=== PATIENT | female | born 1995 | race Caucasian/White ===

== ENCOUNTER → 2021-06-03 15:44 | Outpatient (BNVA) | payer BC, SELFPAY | PROVIDERS: PCP Internal Medicine; Visit Provider Nurse Practitioner Family | DX: Z13.89 Encounter for screening for other disorder (principal) ==

== ENCOUNTER → 2022-03-23 14:21 | Outpatient (BNVA) | payer OTHER, SELFPAY | PROVIDERS: PCP Internal Medicine; Visit Provider Nurse Practitioner Family | DX: Z13.89 Encounter for screening for other disorder (principal) ==

== ENCOUNTER 2022-09-22 14:25 | Outpatient (AMB) | payer OTHER, SELFPAY ==
--- NOTE | 2022-09-22 14:27 | A.OFFVIS_ITS ---
Intake Vital Signs 09/22/22 14:29 Weight 152 lb 8 oz BP 118/66 Blood Pressure Location Rt brachial Position Sitting Pulse 73 Pulse Source Pulse Oximeter Pulse Oximetry (%) 100 Oxygen Delivery Method Room Air Intake Visit Reasons: 6M follow up - Confirmed Intake Note: Pt presents in fup for headaches . Pt states shes doing well but she concerned over when she has any alcohol she reacts quickly like a hangover c Bms and nausea and also lots of shaking and weakness . This month c headaches shes has had 2-3 only but she thinks its caused by her mouth guard breaking . Allergies No Known Allergies Allergy (Verified 09/22/22 14:34) Medication List - Last Reconciled 09/22/22 by Jessica Lobato, GLORIA baclofen 10 mg PO BEDTIME PRN 90 days galcanezumab-gnlm (Emgality Pen) 120 mg subcut once a month; 30 days magnesium oxide 500 mg PO DAILY methylphenidate HCl ER 72 mg PO QAM norethindrone (contraceptive) 0.35 mg PO DAILY propranolol 40 mg PO BID 30 days riboflavin (vitamin B2) 50 mg PO DAILY ubrogepant (Ubrelvy) 50 - 100 mg orally at onset of migraine, may repeat in 2 hours (max 200mg/day); PRN; 30 days HPI HPI Comments History of Present Illness Details 26-yr-old female presents for f/u visit. Pt denies any significant interval medical changes. She was having 1 migraine per month that can last 1-2 days, however frequency has increased to 2-3 per month since her mouth guard broke. She is awaiting a replacement mouth guard. The migraines still respond quickly to Ubrelvy, which is tolerated well. She is questioning if any of her medication may be causing her to not tolerate alcohol consumption. She notes even after drinking 1/2 a can of a gluten free alcoholic beverages she wakes up in the middle of the night with shakiness, nausea, weakness, racing heart. She has tried different types of alcohols and drinks, but she has the same reaction. [facility]LY [facility] Surgical History No pertinent past surgical history Social History Alcohol intake: current Alcohol intake frequency: holidays/special occasions only Patient Tobacco Use Status: Never used Tobacco Review of Systems Const All systems reviewed & are unremarkable except as noted in HPI and below Physical Exam Vital Signs: Last Vital Signs Pulse 73 09/22/22 14:29 BP 118/66 09/22/22 14:29 Pulse Ox 100 09/22/22 14:29 Oxygen Delivery Method Room Air 09/22/22 14:29 Const General: cooperative and no acute distress Orientation/consciousness: patient oriented x3 HEENT Head: Yes normocephalic Resp Effort & Inspection: normal respiratory effort and able to speak in complete sentences Neuro General: patient oriented x3, gait normal and CN's II-XI intact bilaterally Cognition (Neuro): normal cognition Motor exam (neuro): 5/5 motor strength present throughout Psych Appearance: grossly normal Mental Status: mental status grossly normal Speech and movement: Normal speech and movement present Affect: normal affect Attitude: cooperative Thought process: Normal thought process present Thought content: Normal thought content present Insight: Good insight present (Psych) Judgement: Good judgement present (Psych) Assessment & Plan Assessment & Plan (1) Migraine with aura: Comment: basilar aura- stuttering Code(s): G43.109 - Migraine with aura, not intractable, without status migrainosus (2) Adult onset fluency disorder: Code(s): F98.5 - Adult onset fluency disorder (3) 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 Advised pt to hold Propranol on nights in which she consumes alcohol, if this is not effective, try holding propranolol the the morning and night of consuming alcohol. For migraine prevention tx: Continue Emgality 120 mg sc q month, as pt has been having good clinical effect. Continue Propranolol, Magnesium, Riboflavin. Previous preventive tx: Cyproheptadine-ineffective. Aucte migraine tx: Continue Ubrelvy, may adjunct w/ NSAID. Previous acute migraine tx: Nurtec was not previously fully effective. Migraine tx contraindications: Triptans d/t migraine w/ basilar aura. Monitor stuttering. Monitor cold hand symptoms- ? familial Raynoud's, ? exacerbated by CGRP MAB/gepant use. For bruxism: Baclofen 5-10mg qhs prn Resume mouth guard qhs when able Future considerations: PT for TMJ, Botox, orthodontics. f/u in 6 months or sooner prn. Medications: Refilled ubrogepant (Ubrelvy) (0.5 - 1 x 100 mg) 50 - 100 mg orally at onset of migraine, may repeat in 2 hours (max 200mg/day); PRN; 30 days 8 tabs 6RF migraine headache Coding Level of Care Code Est Pt Level 4 (59301) Diagnoses Migraine with aura G43.109 Adult onset fluency disorder F98.5 Bruxism F45.8
[2022-09-22 14:29] VITALS: BP 118/66; PULSE 73; O2SAT 100
== END 2022-09-22 15:24 | disposition home or self-care (01) ==
PROVIDERS: Visit Provider Nurse Practitioner Family
DX: G43.109 Migraine with aura, not intractable, without status migrainosus (principal); F98.5 Adult onset fluency disorder; F45.8 Other somatoform disorders
CPT/HCPCS: 99214

== ENCOUNTER → 2022-09-22 14:25 | Outpatient (BNVA) | payer OTHER, SELFPAY | PROVIDERS: Visit Provider Nurse Practitioner Family ==

== ENCOUNTER 2023-03-28 14:20 | Outpatient (AMB) | payer BC, SELFPAY ==
--- NOTE | 2023-03-28 14:28 | A.OFFVIS_ITS ---
Intake Vital Signs 03/28/23 14:29 Height 5 ft 8 in Weight 166 lb BMI 25.2 Intake Visit Reasons: 6M follow up-Conf Intake Note: Patient presents for 6 month follow up. last time I saw her I was telling her about feeling nauseous after drinking. Allergies No Known Allergies Allergy (Verified 03/28/23 14:30) Medication List - Last Reconciled 03/28/23 by GLORIA Sanchez baclofen 10 mg PO BEDTIME PRN 90 days galcanezumab-gnlm (Emgality Pen) 120 mg subcut once a month; 30 days magnesium oxide 500 mg PO DAILY methylphenidate HCl ER 72 mg PO QAM norethindrone (contraceptive) 0.35 mg PO DAILY propranolol 40 mg PO BID 30 days riboflavin (vitamin B2) 50 mg PO DAILY ubrogepant (Ubrelvy) 50 - 100 mg orally at onset of migraine, may repeat in 2 hours (max 200mg/day); PRN; 30 days HPI HPI Comments History of Present Illness Details 27-yr-old female presents for f/u visit. Pt denies any significant interval medical changes. Pt notes that her Concerta was decreased from 72mg to 27mg qd d/t thought it was causing increased irritability. On the lower dose, she is not irritable, but has had some increased difficulties focusing. Her migraines are well-controlled. She has had 2 migraine sin the last month, one lasted 1 day and the other 2 days- did not have Ubrelvy available to her. Ubrelvy is still effective. She is compliant w/ propranolol, which she did realize was triggering the excessive N/V after minimal alcohol intake. She has not been able to figure how to hold the Propranolol prior to social alco hol use. ON LICENSE OF [facility] Surgical History No pertinent past surgical history Social History Alcohol intake: current Alcohol intake frequency: holidays/special occasions only Patient Tobacco Use Status: Never used Tobacco Physical Exam Vital Signs: BMI result Body Mass Index 25.2 Const General: cooperative and no acute distress Orientation/consciousness: patient oriented x3 Resp Effort & Inspection: normal respiratory effort and able to speak in complete sentences Neuro General: patient oriented x3 Cranial nerves: Yes CN's II-XII intact bilaterally Cognition (Neuro): normal cognition Psych Appearance: grossly normal Mental Status: mental status grossly normal Speech and movement: Normal speech and movement present Affect: normal affect Attitude: cooperative Assessment & Plan Assessment & Plan (1) Migraine with aura: Comment: basilar aura- stuttering Code(s): G43.109 - Migraine with aura, not intractable, without status migrainosus (2) Adult onset fluency disorder: Code(s): F98.5 - Adult onset fluency disorder (3) Bruxism: Code(s): F45.8 - Other somatoform disorders Plan For migraine prevention tx: Wean off propranolol- as this causes severe N/V reaction to any alcohol intake. Monitor headache attack burden. Continue Emgality 120 mg sc q month, as pt has been having good clinical effect. Continue Magnesium, Riboflavin. Previous preventive tx: Cyproheptadine-ineffective. Aucte migraine tx: Continue Ubrelvy, may adjunct w/ NSAID. Previous acute migraine tx: Nurtec was not previously fully effective. Migraine tx contraindications: Triptans d/t migraine w/ basilar aura. Monitor stuttering. Monitor cold hand symptoms- ? familial Raynoud's, ? exacerbated by CGRP MAB/gepant use. For bruxism: Baclofen 5-10mg qhs prn Mouth guard qhs when able Future considerations: PT for TMJ, Botox, orthodontics. f/u in 6 months or sooner prn. Medications: New propranolol 3 tabs bid x's 1 wk, then 2 tabs bid x's 1 wk, then 1 tab bid x's 1 wk, then 1 tab qd x's 1 wk, then stop orally. 28 days 91 tabs 0RF Refilled ubrogepant (Ubrelvy) (0.5 - 1 x 100 mg) 50 - 100 mg orally at onset of migraine, may repeat in 2 hours (max 200mg/day); PRN; 30 days 16 tabs 6RF migraine headache Discontinued propranolol Discontinued Reason: Doctor's Order 40 mg PO BID 30 days 180 tabs 1RF Coding Level of Care Code Est Pt Level 4 (40985) Diagnoses Migraine with aura G43.109 Adult onset fluency disorder F98.5 Bruxism F45.8
[2023-03-28 14:29] VITALS: BMI 25.2
== END 2023-03-28 15:10 | disposition home or self-care (01) ==
PROVIDERS: PCP Internal Medicine; Visit Provider Nurse Practitioner Family
DX: G43.109 Migraine with aura, not intractable, without status migrainosus (principal); F98.5 Adult onset fluency disorder; F45.8 Other somatoform disorders
CPT/HCPCS: 99214

== ENCOUNTER → 2023-03-28 14:20 | Outpatient (BNVA) | payer BC, SELFPAY | PROVIDERS: PCP Internal Medicine; Visit Provider Nurse Practitioner Family ==

== ENCOUNTER 2023-09-29 13:53 | Outpatient (AMB) | payer BC, SELFPAY ==
--- NOTE | 2023-09-29 13:57 | A.OFFVIS_ITS ---
Vital Signs 09/29/23 13:58 Height 5 ft 8 in Weight 162 lb BMI 24.6 Intake Visit Reasons: 6 month F/U-Conf Intake Note: Patient presents for 6 month follow up Allergies No Known Allergies Allergy (Verified 09/29/23 14:01) Medication List - Last Reconciled 09/29/23 by GLORIA Sanchez baclofen 10 mg PO BEDTIME PRN 90 days galcanezumab-gnlm (Emgality Pen) 120 mg subcut once a month; 30 days magnesium oxide 500 mg PO DAILY methylphenidate HCl ER 72 mg PO QAM norethindrone (contraceptive) 0.35 mg PO DAILY propranolol 3 tabs bid x's 1 wk, then 2 tabs bid x's 1 wk, then 1 tab bid x's 1 wk, then 1 tab qd x's 1 wk, then stop orally. 28 days riboflavin (vitamin B2) 50 mg PO DAILY ubrogepant (Ubrelvy) 50 mg PO ONCE PRN 30 days HPI Comments Details: 27-yr-old female presents for f/u visit. Pt denies any significant interval medical changes. Her migraines are stable, however nopt able to treta them as well as she has not had Ubrelvy recently as pharmacy states not approved by insurance. She has had 4 migraine attacks in the last month. Ubrelvy 100mg had been effective before running out. Continues on Emgality, which she is tolerating well. She has stopped Propranolol- no longer having issues taking social alcohol. FOR[facility]LY [facility] Surgical History No pertinent past surgical history Social History Alcohol intake: current Alcohol intake frequency: holidays/special occasions only Patient Tobacco Use Status: Never used Tobacco Physical Exam Vital Signs: BMI result Body Mass Index 24.6 Const General: cooperative and no acute distress Orientation/consciousness: patient oriented x3 Resp Effort & Inspection: normal respiratory effort and able to speak in complete sentences Neuro General: patient oriented x3 Cranial nerves: Yes CN's II-XII intact bilaterally Cognition (Neuro): normal cognition Psych Appearance: grossly normal Mental Status: mental status grossly normal Speech and movement: Normal speech and movement present Affect: normal affect Attitude: cooperative Assessment & Plan Assessment & Plan (1) Migraine with aura: Comment: basilar aura- stuttering Code(s): G43.109 - Migraine with aura, not intractable, without status migrainosus Category: Medical (2) Adult onset fluency disorder: Code(s): F98.5 - Adult onset fluency disorder Category: Medical (3) TMJ dysfunction: Code(s): M26.609 - Unspecified temporomandibular joint disorder, unspecified side Category: Medical Plan For migraine prevention tx: Continue Emgality 120 mg sc q month, as pt has been having good clinical effect. Continue Magnesium, Riboflavin. Previous preventive tx: Cyproheptadine-ineffective. propranolol- as this causes severe N/V reaction to any alcohol intake. Aucte migraine tx: Resume Ubrelvy, may adjunct w/ NSAID. Note there is a Ubrelvy [place] approval for 50mg tab- will refill, if ineffective, will increase dose back to 100mg tab. Previous acute migraine tx: Nurtec was not previously fully effective. Migraine tx contraindications: Triptans d/t migraine w/ basilar aura. Monitor stuttering. Monitor cold hand symptoms- ? familial Raynoud's, ? exacerbated by CGRP MAB/gepant use. For bruxism: Baclofen 5-10mg qhs prn Mouth guard qhs Future considerations: PT for TMJ, Botox, orthodontics. f/u in 6 months or sooner prn. Medications: New ubrogepant (Ubrelvy) May repeat q 2hrs (max 200mg/day) 50 mg PO ONCE 30 days PRN 16 tabs 6RF migraine headache methylphenidate HCl ER (Concerta) 27 mg PO DAILY 0RF Discontinued propranolol Discontinued Reason: Doctor's Order 3 tabs bid x's 1 wk, then 2 tabs bid x's 1 wk, then 1 tab bid x's 1 wk, then 1 tab qd x's 1 wk, then stop orally. 28 days 91 tabs 0RF Coding Level of Care Code Est Pt Level 4 (89492) Diagnoses Migraine with aura G43.109 Adult onset fluency disorder F98.5 TMJ dysfunction M26.609
[2023-09-29 13:58] VITALS: BMI 24.6
== END 2023-09-29 14:40 | disposition home or self-care (01) ==
PROVIDERS: PCP Internal Medicine; Visit Provider Nurse Practitioner Family
DX: G43.109 Migraine with aura, not intractable, without status migrainosus (principal); F98.5 Adult onset fluency disorder; M26.609 Unspecified temporomandibular joint disorder, unspecified side
CPT/HCPCS: 99214

== ENCOUNTER → 2023-09-29 13:53 | Outpatient (BNVA) | payer BC, SELFPAY | PROVIDERS: PCP Internal Medicine; Visit Provider Nurse Practitioner Family ==

== ENCOUNTER 2024-04-09 14:37 | Outpatient (AMB) | payer BC, SELFPAY ==
[2024-04-09 14:44] VITALS: BP 100/70; PULSE 64; O2SAT 98; BMI 24.6
--- NOTE | 2024-04-09 14:44 | A.OFFVIS_ITS ---
Vital Signs 04/09/24 14:44 Height 5 ft 8 in Weight 162 lb BMI 24.6 BP 100/70 Blood Pressure Location Lt brachial Position Sitting Pulse 64 Pulse Source Pulse Oximeter Pulse Oximetry (%) 98 Oxygen Delivery Method Room Air Intake Visit Reasons: Follow Up Intake Note: Patient presents for follow up for INNA. No data on resmed for CPAP compliance. Laboratory Tech Required: No Accompanied by: Self / Same As Patient Allergies No Known Allergies Allergy (Verified 04/09/24 14:45) Medication List - Last Reconciled 04/09/24 by GLORIA Sanchez baclofen 10 mg PO BEDTIME PRN 90 days galcanezumab-gnlm (Emgality Pen) 120 mg subcut once a month; 30 days magnesium oxide 500 mg PO DAILY methylphenidate HCl ER (Concerta) 27 mg PO DAILY norethindrone (contraceptive) 0.35 mg PO DAILY riboflavin (vitamin B2) 50 mg PO DAILY ubrogepant (Ubrelvy) 50 mg PO ONCE PRN 30 days HPI Comments Details: The patient is a 28-year-old female presenting with migraine. Reports overall her migraine frequency has been better controlled now at most 3-4 days per month. However, she misplaced her nocturnal mouth guard for several months, and as she recently found it, her dentist has advised her to resume wearing it. She is concerned that using the mouth guard again will exacerbate her migraine attacks (as her teeth have already shifted in the time she was unable to wear it). In the past, Bruxism-induced migraines were managed with baclofen. Recurrent tension headaches update, absent from before, after losing and refinding the mouthguard. Prior propranolol-related adverse effects noted. Ubrelvy continues to effectively treat migraine attacks, however recently had a migraine that did not respond fully to Ubrelvy 50mg- where as she never had this issue with previous 100mg dose. [facility] Surgical History No pertinent past surgical history Social History Alcohol intake: current Alcohol intake frequency: holidays/special occasions only Patient Tobacco Use Status: Never used Tobacco Physical Exam Vital Signs: Last Vital Signs Pulse 64 04/09/24 14:44 BP 100/70 04/09/24 14:44 Pulse Ox 98 04/09/24 14:44 Oxygen Delivery Method Room Air 04/09/24 14:44 BMI result Body Mass Index 24.6 Const General: cooperative and no acute distress Orientation/consciousness: patient oriented x3 Resp Effort & Inspection: normal respiratory effort and able to speak in complete se ntences Neuro General: patient oriented x3 Cranial nerves: Yes CN's II-XII intact bilaterally Cognition (Neuro): normal cognition Psych Appearance: grossly normal Mental Status: mental status grossly normal Speech and movement: Normal speech and movement present Affect: normal affect Attitude: cooperative Assessment & Plan Assessment & Plan (1) Migraine with aura: Comment: basilar aura- stuttering Code(s): G43.109 - Migraine with aura, not intractable, without status migrainosus Category: Medical (2) Adult onset fluency disorder: Code(s): F98.5 - Adult onset fluency disorder Category: Medical (3) TMJ dysfunction: Code(s): M26.609 - Unspecified temporomandibular joint disorder, unspecified side Category: Medical Plan I discussed with the patient the likelihood of continued mouthguard use leading to tension headaches and the temporary need for baclofen to ease muscle tension. We reviewed ubrelvy?s current dosage limitations due to insurance and its higher dose effectiveness. The patient expressed understanding of the treatment plan, which includes increasing the ubrelvy dose if possible and using baclofen to aid adaptation to the mouthguard. Consent was obtained to proceed with this approach, with the patient informed of any alternatives and advised on consistent mouthguard use to prevent further complications. Patient was informed and verbally consented to the use of an ambient scribe for clinic note documentation during this visit. For migraine prevention tx: Continue Emgality 120 mg sc q month, as pt has been having good clinical effect. Continue Magnesium, Riboflavin. Previous preventive tx: Cyproheptadine-ineffective. propranolol- as this causes severe N/V reaction to any alcohol intake. Acute migraine tx: Increase Ubrogepant (Ubrelvy) dose back to 100mg tab, as this dose is more effective than 50mg dose. Ubrelvy 100mg at onset of headache, may repeat in 2 hours. Max of 2 tabs (200mg) per 24 hours. May adjunct with OTC Tylenol 650mg q 4 hours, Ibuprofen 600mg q 6 hours, or Naproxen 440mg q 12 hrs prn. Previous acute migraine tx: Nurtec was not previously fully effective and made her fingers go numb. Migraine tx contraindications: Triptans d/t migraine w/ basilar aura. Monitor stuttering. Monitor cold hand symptoms- ? familial Raynoud's, ? exacerbated by CGRP MAB/gepant use. For bruxism: Resume baclofen 5-10mg qhs prn Resume mouth guard qhs- after restarting baclofen for 1-2 weeks. Future considerations: PT for TMJ, Botox, orthodontics. f/u in 6 months or sooner prn. Medications: New ubrogepant (Ubrelvy) take at onset of migraine, may repeat in 2hrs (may take w/ Ibuprofen) 100 mg PO ONCE PRN 10 tabs 6RF migraine headache 30 days Changed From baclofen 10 mg PO BEDTIME 90 days PRN 90 tabs 1RF muscle spasm To baclofen 10 mg PO BEDTIME PRN 60 tabs 1RF muscle spasm 60 days From magnesium oxide 500 mg PO DAILY To magnesium oxide 500 mg PO BEDTIME From riboflavin (vitamin B2) 50 mg PO DAILY To riboflavin (vitamin B2) 200 mg PO BID Discontinued ubrogepant May repeat q 2hrs (max 200mg/day) Discontinued Reason: Doctor's Order 50 mg PO ONCE 30 days PRN 16 tabs 6RF migraine headache Coding Level of Care Code Est Pt Level 4 (75895) Diagnoses Migraine with aura G43.109 Adult onset fluency disorder F98.5 TMJ dysfunction M26.609
--- OUTSIDE RECORDS SUMMARY | 2024-04-09 18:30 | XMS_ITS | Clinical Summary ---
Author Organization [facility] Address [address] [place] [address] Care Team Providers Care Die Maintenance Technician Name Role Phone Pcp, No Primary Care Provider Unavailabl e Allergies No known active allergies Medications Medication Sig Dispensed Refills Start Date End Date Status methylphenidate (CONCERTA) 18 MG CR tablet Take 18 mg by mouth every morning. Active propranolol (INDERAL) 10 MG tablet Take 10 mg by mouth 3 (three) times a day. Active magnesium oxide 200 MG tablet Take 200 mg by mouth daily. Take 2 hours apart from other medications; take with food Active Active Problems No known active problems Social History Tobacco Use Types Packs/Day Years Used Date Smoking Tobacco: Never Assessed Sex and Gender Information Value Date Recorded Sex Assigned at Not on file Gender Identity Not on file Sexual Orientation Not on file Last Filed Vital Signs Vital Sign Reading Time Taken Comments Blood Pressure 116/80 12/21/2021 4:04 PM EST Pulse 82 12/21/2021 4:04 PM EST Temperature 36.7 ??C (98.1 ??F) 12/21/2021 4:04 PM ES T Respiratory Rate - - Oxygen Saturation 99% 12/21/2021 4:04 PM EST Inhaled Oxygen Concentration - - Weight 67.1 kg (148 lb) 12/21/2021 4:04 PM EST Height - - Body Mass Index - - Plan of Treatment Health Maintenance Due Date Last Done Comments Hepatitis C Virus Screening 1995 HIV Screening 11/03/2008 DTaP/Tdap/Td Vaccines (1 - Tdap) 11/03/2014 Hepatitis B Vaccines (1 of 3 - 19+ 3-dose series) 11/03/2014 Pap Smear (Ages 21-65) 11/03/2016 Influenza Vaccine 09/07/2023 12/28/2011, 02/04/2010, 02/04/2009 COVID-19 Vaccine (2023-2 5 season) 2023 HPV Vaccines Aged Out No longer eligi ble based on patient's age to complete this topic Pneumococcal Vaccine: Pediatric (0-5 Years) and At-Risk Patients (6 to 49 Years) Aged Out No longer eligible b ased on patient's age to complete this topic Care Teams Die Maintenance Technician Relationship Specialty Start Date End Date Pcp, [address] [place] [place] [address] PCP - General 02/08/21
== END 2024-04-09 15:33 | disposition home or self-care (01) ==
PROVIDERS: PCP Internal Medicine; Visit Provider Nurse Practitioner Family
DX: G43.109 Migraine with aura, not intractable, without status migrainosus (principal); F98.5 Adult onset fluency disorder; M26.609 Unspecified temporomandibular joint disorder, unspecified side
CPT/HCPCS: 99214

== ENCOUNTER → 2024-04-09 14:37 | Outpatient (BNVA) | payer BC, SELFPAY | PROVIDERS: PCP Internal Medicine; Visit Provider Nurse Practitioner Family ==

== ENCOUNTER 2024-10-10 14:51 | Outpatient (AMB) | payer BC, SELFPAY ==
[2024-10-10 14:56] VITALS: BP 110/64; PULSE 64; O2SAT 98; BMI 23.3
--- NOTE | 2024-10-10 14:56 | A.OFFVIS_ITS ---
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 Reports overall her migraine frequency continues to be well controlled o with a combination of using a mouth guard, monthly Emgality, and as needed Ubrelvy Ubrelvy 100 mg continues to be effective when needed. Patient notes that her health insurance plan changed this month, and she is concerned that her [id number] co-pay is are going to increase, specifically for the Emgality. She is curious if there are any Emgality patient assistance programs. [facility] Surgical History No pertinent past surgical history Social History Alcohol intake: current Alcohol intake frequency: holidays/special occasions only Patient Tobacco Use Status: Never used Tobacco Physical Exam Vital Signs: Last Vital Signs Pulse 64 10/10/24 14:56 BP 110/64 10/10/24 14:56 Pulse Ox 98 10/10/24 14:56 Oxygen Delivery Method Room Air 10/10/24 14:56 BMI result Body Mass Index 23.3 Const General: cooperative and no acute distress Orientation/consciousness: patient oriented x3 Resp Effort & Inspection: normal respiratory effort and able to speak in complete sentences Neuro General: patient oriented x3 Cranial nerves: Yes CN's II-XII intact bilaterally Cognition (Neuro): normal cognition Psych Appearance: grossly normal Mental Status: mental status grossly normal Speech and movement: Normal speech and movement present Affect: normal affect Attitude: cooperative Assessment & Plan Assessment & Plan (1) Migraine with aura: Comment: basilar aura- stuttering Code(s): G43.109 - Migraine with aura, not intractable, without status migrainosus Category: Medical Qualifiers: Status migrainosus presence: without status migrainosus Intractability: not intractable Qualified Code(s): G43.109 - Migraine with aura, not intractable, without status migrainosus (2) Adult onset fluency disorder: Code(s): F98.5 - Adult onset fluency disorder Category: Medical (3) TMJ dysfunction: Code(s): M26.609 - Unspecified temporomandibular joint disorder, unspecified side Category: Medical Plan For overall migraine headache prevention: * Monitor stuttering. * Monitor cold hand symptoms- ? familial Raynoud's, ? exacerbated by CGRP MAB/gepant use. For migraine prevention tx: * Continue Emgality 120 mg sc q month, as pt has been having good clinical effect. * Information shared on how to access an Emgality co-pay assistance card * Continue Magnesium, Riboflavin. Previous preventive tx: Cyproheptadine-ineffective. propranolol- as this causes severe N/V reaction to any alcohol intake. Acute migraine tx: * Continue Ubrogepant (Ubrelvy) 100mg at onset of headache, may repeat in 2 hours. Max of 2 tabs (200mg) per 24 hours. May adjunct with OTC Tylenol 650mg q 4 hours, Ibuprofen 600mg q 6 hours, or Naproxen 440mg q 12 hrs prn. Previous acute migraine tx: Nurtec was not previously fully effective and made her fingers go numb. Migraine tx contraindications: Triptans d/t migraine w/ basilar aura. For bruxism: * Baclofen 5-10mg daily at bedtime as needed * Mouth guard daily at bedtime Future considerations: PT for TMJ, Botox, orthodontics. f/u in 6 months or sooner prn. Coding Level of Care Code Est Pt Level 4 (92805) Diagnoses Migraine with aura and without status migrainosus, not intractable G43.109 Status migrainosus presence: without status migrainosus Intractability: not intractable Adult onset fluency disorder F98.5 TMJ dysfunction M26.601
--- OUTSIDE RECORDS SUMMARY | 2024-10-10 16:02 | XMS_ITS | Clinical Summary ---
Author Organization [facility] Address [address] [place] [address] Phone Care Team Providers Care Analytical Lab Technician Name Role Phone Hossein Mckoy MD Primary Care Provider Allergies No known active allergies Medications levonorgestrel-e thinyl estradiol (AVIANE,ALESSE,L ESSINA) 0.1-0.02 mg per tablet Take 1 tablet by mouth. 04/11/2018 Active methylphenidate HCl (CONCERTA) 36 MG CR tablet Take 72 mg by mouth. 12/30/2014 Active propranolol (INDERAL) 40 MG immediate release tablet Take 40 mg by mouth. 3 03/22/2018 Active cyproheptadine (PERIACTIN) 4 mg tablet Take 4 mg by mouth. 5 03/28/2018 Active Active Problems No known active problems Social History Tobacco Use Types Packs/Day Years Used Date Smoking Tobacco: Never Smokeless Tobacco: Never Alcohol Use Standard Drinks/Week Comments Yes 0 (1 standard drink = 0.6 oz pur e alcohol) Education Answer Date Recorded Are you interested in more education? Not on jina e 06/03/2022 Are you concerned about learning? Not on file 06/03/2022 No 06/03/2022 No 06/03/2022 Digital Access Answer Date Recorded No 07/04/2022 No 07/04/2022 No 07/04/2022 Reliable internet access at home? Not on file 07/04/2022 Device with a working camera? Not on file Comments Unknown Sex and Gender Information Value Date Recorded Sex Assigned at Not on file Legal Sex Female 4:47 PM EDT Gender Identity Not on file Sexual Orientation Not on file Last Filed Vital Signs Vital Sign Reading Time Taken Comments Blood Pressure - - Pulse - - Temperature - - Respiratory Rate - - Oxygen Saturation - - Inhaled Oxygen Concentration - - Weight 68 kg (150 lb) 04/27/2018 4:00 PM EDT Height 172.7 cm (5' 8 ) 04/27/2018 4:00 PM EDT Body Mass Index 22.81 04/27/2018 4:00 PM EDT Plan of Treatment Health Maintenance Due Date Last Done Comments DEPRESSION SCREENING 2007 HEPATITIS C SCREENING 11/03/2013 HIV ONE-TIME SCREENING (18-65 YEARS) 11/03/2013 PAP SMEAR 11/03/2016 SMOKING STATUS SCREENING (Once After 26 Yrs) 11/03/2021 INFLUENZA VACCINE (#1) 2024 , 12/27/2016, 12/30/2014, Additional history exists COVID-19 VACCINE (2024- season) 2024 03/26/2020 Adult Td,Tdap Booster 01/10/2030 01/11/2020, 007 HIB VACCINES Completed 01/20/1997, 01/06, 04/20/1996, Additional history exists MENINGOCOCCAL VACCINES (ACWY) Completed 07/14/2014, 02/04/2009 HEPATITIS A VACCINES Aged Out No long er eligible based on patient's age to complete this topic MENINGOCOCCAL VACCINES (B) Aged Out N o longer eligible based on patient's age to complete this topic PNEUMOCOCCAL VACCINES (0-49 years) Aged Out No longer eligible based on patient's age to complete this topic Medical Devices Not on file Insurance [employer] [id number] [id number] Care Teams Analytical Lab Technician Relationship Specialty Start Date End Date Hossein Mckoy MD [address] [place] [phone] PCP - General Internal Medicine 04/27/18 Additional Source Comments The information contained in this document represents components of the legal health record. It is not the complete legal health record.[facility]
--- OUTSIDE RECORDS SUMMARY | 2024-10-10 16:02 | XMS_ITS | Clinical Summary ---
Author Organization [facility] Address [address] [place] [address] Care Team Providers Care Director Special Education Name Role Phone Pcp, No Primary Care Provider Unavailabl e Allergies No known active allergies Medications methylphenidate (CONCERTA) 18 MG CR tablet Take 18 mg by mouth every morning. Active propranolol (INDERAL) 10 MG tablet Take 10 mg by mouth 3 (three) times a day. Active magnesium oxide 200 MG tablet Take 200 mg by mouth daily. Take 2 hours apart from other medications ; take with food Active Active Problems No known active problems Social History Tobacco Use Types Packs/Day Years Used Date Smoking Tobacco: Never Assessed Comments Unknown Sex and Gender Information Value Date Recorded Sex Assigned at Not on file Legal Sex Female 2:36 PM EST Gender Identity Not on file Sexual Orientation Not on file Last Filed Vital Signs Vital Sign Reading Time Taken Comments Blood Pressure 116/80 12/21/2021 4:04 PM EST Pulse 82 12/21/2021 4:04 PM EST Temperature 36.7 C (98.1 F) 12/21/2021 4:04 PM EST Respiratory Rate - - Oxygen Saturation 99% [...] series) 11/03/2014 Pap Smear (Ages 21-65) 11/03/2016 HPV Vaccines (1 - 3-dose SCD M series) 11/03/2022 COVID-19 Vaccine (2023-2 5 season) 2023 Influenza Vaccine 09/06/2024 12/28/2011, 02/04/2010, 02/04/2009 Pneumococcal Vaccine: Pediatric (0-5 Years) and At-Risk Patients (6 to 49 Years) Aged Out No longer eligible b ased on patient's age to complete this topic Care Teams Director Special Education Relationship Specialty Start Date End Date Pcp, No [address] [place] [id number] PCP - General 02/08/21
== END 2024-10-10 15:49 | disposition home or self-care (01) ==
PROVIDERS: PCP Internal Medicine; Visit Provider Nurse Practitioner Family
DX: G43.109 Migraine with aura, not intractable, without status migrainosus (principal); F98.5 Adult onset fluency disorder; M26.609 Unspecified temporomandibular joint disorder, unspecified side
CPT/HCPCS: 99214